=== PATIENT | male | born 1990 | race Caucasian/White ===

== ENCOUNTER 2018-05-31 08:53 | Emergency (ER) | payer OTHER ==
[2018-05-31] MEDS ORDERED: methylPREDNISolone SOD 40 MG* 1 ML VIAL IM ONE (09:32)
[2018-05-31] MEDS ORDERED: diPHENhydraMINE PO* 25 MG PO ONE (09:32)
[2018-05-31] MEDS ORDERED: methylPREDNISolone TAB* 4 MG PO ONE (09:32)
[2018-05-31 09:52] VITALS: BP 118/90
--- NOTE | 2018-05-31 10:05 | ED ---
Allergic Reaction/Systemic - HPI Summary HPI Summary: Patient is a 28-year-old male presenting to the ED with the concern over a bee sting to the dorsum of the left hand. He notes to immediate swelling and erythema with a small amount of pain extending just over the dorsum of the hand and not extending into the wrist or palmar side of the hand. Unsure if he is allergic to bees, but states his family is and was concerned. Denies any shortness of breath, dysphagia or odynophagia. Patient is in no acute distress. - History of Current Complaint Chief Complaint: EDExtremityUpper Time Seen by Provider: 05/31/18 09:06 Hx Obtained From: Patient Onset/Duration: Sudden Onset Timing: Constant Severity Initially: Mild Severity Currently: Mild Pain Intensity: 3 Pain Scale Used: 0-10 Numeric Location: Discrete @ - left dorsum of hand Character: Swelling, Pruritus, Pain Associated Signs And Symptoms: Positive: Negative - Related Hx Possible Reaction To: Insect - Allergies/Home Medications Allergies/Adverse Reactions: Allergies Allergy/AdvReac Type Severity Reaction Status Date / Time No Known Allergies Allergy Verified 05/31/18 09:02 PMH/Surg Hx/FS Hx/Imm Hx Previously Healthy: Yes - Immunization History Hx Pertussis Vaccination: No Immunizations Up to Date: Unable to Obtain/Confirm Infectious Disease History: No Infectious Disease History: Denies: Traveled Outside the [place] in Last 30 Days - Social History Occupation: Employed Full-time Lives: With Family Alcohol Use: Weekly Hx Substance Use: No Substance Use Type: Reports: None Hx Tobacco Use: Yes Smoking Status (MU): Current Every Day Smoker Review of Systems Constitutional: Negative Negative: Fever, Chills, Fatigue, Skin Diaphoresis Negative: Blurred Vision, Diplopia Negative: Palpitations, Chest Pain Negative: Shortness Of Breath, Cough Negative: Arthralgia Positive: Other - erythema and swelling to the dorsum of the L hand Neurological: Negative All Other Systems Reviewed And Are Negative: Yes Physical Exam Triage Information Reviewed: Yes Vital Signs On Initial Exam: Initial Vitals Temp Pulse Resp BP Pulse Ox 98.2 F 66 16 115/73 100 05/31/18 08:58 05/31/18 08:58 05/31/18 08:58 05/31/18 08:58 05/31/18 08:58 Vital Signs Reviewed: Yes Appearance: Positive: Well-Appearing, Well-Nourished Skin: Positive: Warm, Skin Color Reflects Adequate Perfusion, Other - erythema and swelling to the dorsum of the L hand Head/Face: Positive: Normal Head/Face Inspection Eyes: Positive: EOMI, ROSANGELA, Conjunctiva Clear ENT: Positive: Pharynx normal, Uvula midline Neck: Positive: Supple, No Lymphadenopathy Respiratory/Lung Sounds: Positive: Clear to Auscultation, Breath Sounds Present Cardiovascular: Positive: RRR, Pulses are Symmetrical in both Upper and Lower Extremities Musculoskeletal: Positive: Normal, Strength/ROM Intact Neurological: Positive: Speech Normal Psychiatric: Positive: Normal, Affect/Mood Appropriate AVPU Assessment: Alert Diagnostics - Vital Signs Vital Signs Temp Pulse Resp BP Pulse Ox 05/31/18 09:50 98.2 F 70 17 118/90 100 05/31/18 08:58 98.2 F 66 16 115/73 100 - Laboratory Lab Statement: Any lab studies that have been ordered have been reviewed, and results considered in the medical decision making process. Allergic Reaction Course/Dx - Course Course Of Treatment: Patient is given Benadryl and IM methylprednisolone 40 mg on arrival. He is in no acute distress. Lungs CTA. Denies any odynophagia or dysphagia. Airway patent. No concern for an allergic reaction. Has been approximately 1 hour and 15 minutes since sting. Upon administration of methylprednisolone, patient has a vagovasal episode and vomiting. A weighted 20 minutes and patient feeling better. Vital signs are stable just prior to discharge. - Diagnoses Provider Diagnoses: Bee sting Discharge - Sign-Out/Discharge Documenting (check all that apply): Discharge/Admit/Transfer - Discharge Plan Condition: Stable Disposition: HOME Patient Education Materials: Insect Bite or Sting (ED) Referrals: Cecil Mcnulty MD [Primary Care Provider] - Additional Instructions: You may take benadryl at 4pm for continuing symptoms If the area worsens, spreads up the arm or you develop any anaphylactic reaction , return to the ED immediately - Billing Disposition and Condition Condition: STABLE Disposition: Home
== END 2018-05-31 09:50 | disposition home or self-care (01) ==
LOC: ED 08:53
DX: T63.441A Toxic effect of venom of bees, accidental (unintentional), initial encounter (principal); Y92.9 Unspecified place or not applicable; Z72.0 Tobacco use; R11.10 Vomiting, unspecified; R55 Syncope and collapse; T38.0X5A Adverse effect of glucocorticoids and synthetic analogues, initial encounter; Y92.239 Unspecified place in hospital as the place of occurrence of the external cause
CPT/HCPCS: 96372; 99282; A9270-GY; J2920; J7509